=== PATIENT | male | born 1955 ===

== ENCOUNTER 2017-06-04 01:58 | Inpatient (IN) ==
[2017-06-04 02:38] LABS: Basophils % 0.2 % (0.0-0.8); Eosinophils # 0.1 10*3/uL (0.0-0.87); Eosinophils % 0.8 % (0.00-10.9); Hematocrit 33.5 VOL% (42.0-52.0); Hemoglobin 10.9 GM/DL (14.0-18.0); Immature Granulocytes % 0.6 %; Immature Granulocytes Absolute 0.05 #; Lymphocytes # 0.5 10*3/uL (1.4-4.0); Lymphocytes % 6.5 % (21.2-54.2); Mean Corpuscular HGB Conc 32.5 GM/DL (32-36); Mean Corpuscular Hemoglobin 30 PG (27-34); Mean Platelet Volume 9.9 FL (9.6-12.0); Monocytes # 0.8 10*3/uL (0.11-0.8); Monocytes % 9.1 % (1.7-12.7); Neutrophils # 6.9 10*3/uL (1.4-7.4); Neutrophils % 82.8 % (38.7-73.9); Platelet Count 357 T/CUMM (130-400); Red Blood Count 3.64 MC/CUMM (3.8-5.5); Red Cell Distribution Width 13.8 % (9.3-17.3); White Blood Count 8.3 T/CUMM (4-12)
[2017-06-04 02:47] LABS: PT Patient Result 10.6 SECS; Partial Thromboplastin Time 33.4 SECS (0-40)
[2017-06-04 02:59] LABS: Apearance,Urine Slightly Hazy (Clear); Bilirubin,Urine Negative (Negative); Blood, Urine Negative (Negative); Glucose,Urine (UA) Negative (Negative); Ketones,Urine 5 mg/dL (Negative); Nitrite,Urine Negative (Negative); Protein,Urine Negative; Urine Color Yellow (Yellow); Urine Specific Gravity 1.012 (1.001-1.035); Urine Urobilinogen < 2.0 EU/DL (0.2-1.0); WBC,Urine 1 /HPF (0-6)
[2017-06-04 03:04] LABS: Alanine Aminotransferase 27 U/L (16-61); Albumin 2.9 G/DL (3.4-5.0); Alkaline Phosphatase 134 U/L (45-117); Aspartate Amino Transferase 15 U/L (0-37); Bilirubin,Total < 0.39 MG/DL (0.2-1.0); Blood Urea Nitrogen 7 MG/DL (7-18); Glucose 98 MG/DL (74-106); Osmolality,Calculated 261.5 MOS/KG (273-304); Potassium 4.3 MMOL/L (3.5-5.1); Sodium 132 MMOL/L (136-145); Total Protein 7.4 G/DL (6.4-8.3)
[2017-06-04] MEDS ORDERED: HYDROmorphone 2 MG/1 ML VIAL IV STA (04:00)
[2017-06-04] MEDS ORDERED: HYDROmorphone 2 MG/1 ML VIAL ONE (04:05)
[2017-06-04] MEDS ORDERED: SODIUM CHLORIDE 0.9% 2,300 ML IV ONE (05:35)
[2017-06-04] MEDS ORDERED: PROMETHAZINE 6.25 MG/5 ML UDCUP PO SCH (06:00)
[2017-06-04] MEDS: HYDROcod/ACETAMIN 7.5-325 MG/15 ML UDCUP PER TUBE PRN ×3 (06:15→20:05)
[2017-06-04] MEDS ORDERED: SODIUM CHLORIDE 0.9% 2,300 ML IV SCH (06:30)
[2017-06-04] MEDS: ALBUTEROL/IPRATROPIUM 3 ML NEB RESP TX SCH ×3 (08:39→19:30)
[2017-06-04] MEDS: LEVOFLOXACIN INJ 750 MG in PREMIX 1 EACH IV SCH (08:44)
[2017-06-04] MEDS: TAMSULOSIN 0.4 MG CAPSULE PO SCH (09:11)
[2017-06-04] MEDS: PROMETHAZINE 25 MG TABLET PEG SCH ×5 (09:11→22:16)
[2017-06-04] MEDS ORDERED: ONDANSETRON ODT 4 MG TABLET PO PRN (10:18)
[2017-06-04] MEDS: fentaNYL 12 MCG/HR PATCH TRANSDERM SCH (10:50)
[2017-06-04] MEDS: traMADol 50 MG TABLET PO PRN ×2 (10:50→17:18)
[2017-06-04] MEDS: busPIRone 5 MG TABLET PEG SCH (20:06)
[2017-06-05] MEDS: ALBUTEROL/IPRATROPIUM 3 ML NEB RESP TX SCH ×4 (00:27→19:27)
[2017-06-05] MEDS: traMADol 50 MG TABLET PO PRN ×4 (00:40→23:50)
[2017-06-05] MEDS: PROMETHAZINE 25 MG TABLET PEG SCH ×5 (02:50→18:16)
[2017-06-05] MEDS: HYDROcod/ACETAMIN 7.5-325 MG/15 ML UDCUP PER TUBE PRN ×4 (02:50→20:50)
[2017-06-05] MEDS: LEVOFLOXACIN INJ 750 MG in PREMIX 1 EACH IV SCH (04:49)
[2017-06-05 05:49] LABS: Basophils % 0.3 % (0.0-0.8); Eosinophils % 0.6 % (0.00-10.9); Hematocrit 28.8 VOL% (42.0-52.0); Hemoglobin 9.4 GM/DL (14.0-18.0); Immature Granulocytes % 0.6 %; Immature Granulocytes Absolute 0.04 #; Lymphocytes # 0.6 10*3/uL (1.4-4.0); Lymphocytes % 9.4 % (21.2-54.2); Mean Corpuscular HGB Conc 32.6 GM/DL (32-36); Mean Corpuscular Hemoglobin 30 PG (27-34); Mean Corpuscular Volume 91.4 FL (87-102); Mean Platelet Volume 9.8 FL (9.6-12.0); Monocytes # 0.7 10*3/uL (0.11-0.8); Monocytes % 11.7 % (1.7-12.7); Neutrophils # 4.9 10*3/uL (1.4-7.4); Neutrophils % 77.4 % (38.7-73.9); Platelet Count 359 T/CUMM (130-400); Red Blood Count 3.15 MC/CUMM (3.8-5.5); Red Cell Distribution Width 13.8 % (9.3-17.3); White Blood Count 6.3 T/CUMM (4-12)
[2017-06-05 06:06] LABS: Calcium 8.5 MG/DL (8.5-10.1); Osmolality,Calculated 260.5 MOS/KG (273-304); Potassium 3.8 MMOL/L (3.5-5.1)
[2017-06-05] MEDS: busPIRone 5 MG TABLET PEG SCH ×2 (08:39→20:48)
[2017-06-05] MEDS: TAMSULOSIN 0.4 MG CAPSULE PO SCH (08:39)
[2017-06-05] MEDS: MUPIROCIN 2% OINT 22 GM TUBE TOP SCH ×2 (15:28→21:18)
[2017-06-06] MEDS: PROMETHAZINE 25 MG TABLET PEG SCH ×8 (00:16→21:24)
[2017-06-06] MEDS: ALBUTEROL/IPRATROPIUM 3 ML NEB RESP TX SCH ×4 (01:01→20:30)
[2017-06-06] MEDS: HYDROcod/ACETAMIN 7.5-325 MG/15 ML UDCUP PER TUBE PRN ×4 (02:31→23:42)
[2017-06-06] MEDS: LEVOFLOXACIN INJ 750 MG in PREMIX 1 EACH IV SCH (04:41)
[2017-06-06 05:35] LABS: Calcium 9.2 MG/DL (8.5-10.1); Osmolality,Calculated 265.4 MOS/KG (273-304); Potassium 3.9 MMOL/L (3.5-5.1); Prealbumin 12.4 MG/DL (20-40)
[2017-06-06] MEDS: traMADol 50 MG TABLET PO PRN ×2 (06:27→13:31)
[2017-06-06] MEDS: TAMSULOSIN 0.4 MG CAPSULE PO SCH (09:06)
[2017-06-06] MEDS: busPIRone 5 MG TABLET PEG SCH ×2 (09:06→21:08)
[2017-06-06] MEDS: MUPIROCIN 2% OINT 22 GM TUBE TOP SCH ×3 (09:06→21:17)
[2017-06-06] MEDS ORDERED: ALUMINUM/MAGNES/SIMETH MAX STR 30 ML UDCUP PO PRN (13:12)
[2017-06-06] MEDS ORDERED: HYDROmorphone 2 MG/1 ML VIAL IV ONE (16:48)
[2017-06-07] MEDS: PROMETHAZINE 25 MG TABLET PEG SCH ×4 (00:35→13:18)
[2017-06-07] MEDS: ALBUTEROL/IPRATROPIUM 3 ML NEB RESP TX SCH ×3 (00:36→13:24)
[2017-06-07] MEDS: LEVOFLOXACIN INJ 750 MG in PREMIX 1 EACH IV SCH (04:59)
[2017-06-07] MEDS: traMADol 50 MG TABLET PO PRN ×2 (05:00→13:18)
[2017-06-07] MEDS ORDERED: fentaNYL 12 MCG/HR PATCH TRANSDERM SCH (09:00)
[2017-06-07] MEDS: busPIRone 5 MG TABLET PEG SCH (10:02)
[2017-06-07] MEDS: fentaNYL 12 MCG/HR PATCH TRANSDERM SCH (10:03)
[2017-06-07] MEDS: TAMSULOSIN 0.4 MG CAPSULE PO SCH (10:03)
[2017-06-07] MEDS: MUPIROCIN 2% OINT 22 GM TUBE TOP SCH (10:04)
[2017-06-07] MEDS: HYDROcod/ACETAMIN 7.5-325 MG/15 ML UDCUP PER TUBE PRN (10:36)
[2017-06-07 12:48] VITALS: BP 104/58
== END 2017-06-07 16:50 | disposition home health service (06) | DRG 393 ==
LOC: EDBD → EDUNIT# → N.ED 01:58 → SUATTDRO 04:37 → N.EDINP 04:37 → N.4E 05:13
PROVIDERS: ADMIT Internal Medicine; ATTEND Internal Medicine